=== PATIENT | male | born 1985 | race Two or more races ===

== ENCOUNTER 2022-04-23 20:40 | Emergency (ER) | payer MEDICAID, OTHER ==
[~2022-04-23] VITALS: Ht 170.2 cm; Wt 90.9 kg
[2022-04-23 21:06] VITALS: BP 147/99
== END 2022-04-24 06:58 | disposition home or self-care (01) ==
LOC: ER 20:40 → EDBD 20:40 → ER 04-24 06:58
DX: K52.9 Noninfective gastroenteritis and colitis, unspecified (principal); F12.10 Cannabis abuse, uncomplicated
CPT/HCPCS: 93005